=== PATIENT | male | born 1995 | race Caucasian/White ===

== ENCOUNTER 2017-10-25 22:35 | Observation (INO) | payer MEDICAID ==
[2017-10-25 22:43] VITALS: BMI 28.1
[2017-10-25] MEDS ORDERED: Sodium Chloride 0.9% 1,000 ML IV STA (22:47)
--- NOTE | 2017-10-25 22:51 | ED PDOC ---
Arrival/HPI - General Chief Complaint: Abdominal Pain Time Seen by Provider: 10/25/17 22:40 Historian: Patient - History of Present Illness Narrative History of Present Illness (Text): 10/25/17 22:48 22yo male with no pmhx present with complaint of RLQ abdominal pain since this morning. States pain started on his epigastric area and localized on his RLQ. States pain is constant , without exacerbating/relieving factors. Denies nausea , vomiting, diarrhea, constipation, melena, hematemesis, chest pain, chills, sick contact, travel, any other complaint. Past Medical History - Provider Review Nursing Documentation Reviewed: Yes - Infectious Disease Hx of Infectious Diseases: None - Musculoskeletal/Rheumatological Hx Falls: No - Psychiatric Hx Substance Use: No - Surgical History Other/Comment: PT DENIES MEDICAL HX Family/Social History - Physician Review Nursing Documentation Reviewed: Yes Family/Social History: Unknown Family HX Smoking Status: Never Smoked Hx Alcohol Use: No Hx Substance Use: No Allergies/Home Meds Allergies/Adverse Reactions: Allergies No Known Allergies Allergy (Verified 05/01/16 21:49) Home Medications: Home Meds Medication Instructions Recorded Confirmed No Known Home Med 05/01/16 10/25/17 Review of Systems - Physician Review All systems were reviewed & negative as marked: Yes - Review of Systems Constitutional: Normal Eyes: Normal ENT: Normal Respiratory: Normal Cardiovascular: Normal Gastrointestinal: Abdominal Pain. absent: Constipation, Diarrhea, Nausea, Vomiting, Hematochezia, Hematemesis Genitourinary Male: Normal Musculoskeletal: Normal Skin: Normal Neurological: Normal Endocrine: Normal Hemo/Lymphatic: Normal Psychiatric: Normal Physical Exam Vital Signs Reviewed: Yes Vital Signs Temp Pulse Resp BP Pulse Ox 10/25/17 22:43 98.4 F 57 L 18 131/57 L 95 10/25/17 22:42 98.4 F 57 L 18 131/57 L 95 Temperature: Afebrile Blood Pressure: Normal Pulse: Regular Respiratory Rate: Normal Appearance: Positive for: Well-Appearing, Non-Toxic, Comfortable Pain Distress: None Mental Status: Positive for: Alert and Oriented X 3 - Systems Exam Head: Present: Atraumatic, Normocephalic Pupils: Present: PERRL Extroacular Muscles: Present: EOMI Conjunctiva: Present: Normal Mouth: Present: Moist Mucous Membranes Neck: Present: Normal Range of Motion Respiratory/Chest: Present: Clear to Auscultation, Good Air Exchange. No: Respiratory Distress, Accessory Muscle Use Cardiovascular: Present: Regular Rate and Rhythm, Normal S1, S2. No: Murmurs Abdomen: Present: Tenderness (RLQ), Normal Bowel Sounds, Other (Soft). No: Distention, Peritoneal Signs, Rebound, Guarding, McBurney's Point Tender, Rovsing's Sign Present Back: Present: Normal Inspection Upper Extremity: Present: Normal Inspection. No: Cyanosis, Edema Lower Extremity: Present: Normal Inspection. No: Edema Neurological: Present: GCS=15, CN II-XII Intact, Speech Normal Skin: Present: Warm, Dry, Normal Color. No: Rashes Psychiatric: Present: Alert, Oriented x 3, Normal Insight, Normal Concentration Medical Decision Making ED Course and Treatment: 10/25/17 23:55 22yo male present with RLQ pain. Lab was ordered. small leukocytosis was noted. Lab was otherwise nonspecific 1L NS, Toradol ordered. ABDOMEN and PELVIS: Intraperitoneal space: Unremarkable. No free air. No significant fluid collection. Bones/joints: No acute fracture. No dislocation. Soft tissues: Unremarkable. Vasculature: Unremarkable. No abdominal aortic aneurysm. Lymph nodes: Unremarkable. No enlarged lymph nodes. IMPRESSION: The appendix is not visualized. No pericecal inflammatory changes. However early acute appendicitis cannot be evaluated on this examination. Correlate clinically. Base on the CT finding. PT will be admitted for evaluation by the surgical team. vice president planning ankita. Dr. Mukesh luciano. 10/26/17 00:55 Case was VIVIEN Mayorga who states pt should be admitted to the hospitalist. Case was DW Dr. Bailon and pt was admitted to they service. Case was also DW the surgical instrument mechanic Estela and she will see pt. All result and plan was DW the pt and he agreed. - Lab Interpretations Lab Results: 10/25/17 23:00 10/25/17 23:00 Lab Results 10/25/17 23:45: Urine Color Yellow, Urine Appearance Clear, Urine pH 6.5, Ur Specific [place] 1.020, Urine Protein Trace H, Urine Glucose (UA) Negative, Urine Ketones Trace H, Urine Blood Negative, Urine Nitrate Negative, Urine Bilirubin Negative, Urine Urobilinogen 0.2, Ur Leukocyte Esterase Negative, Urine RBC 0 - 2, Urine WBC 0 - 2 10/25/17 23:00: Sodium 141, Potassium 3.8, Chloride 102, Carbon Dioxide 28, Anion Gap 16, BUN 22 H, Creatinine 1.2, Est GFR ( Amer) > 60, Est GFR ( Non-Af Amer) > 60, Random Glucose 88, Calcium 9.5, Magnesium 2.0, Total Bilirubin 0.3, AST 82 H, ALT 71 H, Alkaline Phosphatase 86, Total Protein 7.6, Albumin 4.6, Globulin 3.1, Albumin/Globulin Ratio 1.5, Lipase 57 10/25/17 23:00: PT 12.7 H, INR 1.11, APTT 30.3 10/25/17 23:00: WBC 11.2 H D, RBC 5.69, Hgb 13.8 L, Hct 42.4, MCV 74.5 L, MCH 24.3 L, MCHC 32.5, RDW 14.5, Plt Count 114 L, MPV 10.1, Gran % 59.4, Lymph % ( Auto) 34.9, [place] % (Auto) 4.5, Eos % (Auto) 1.0 L, Baso % (Auto) 0.2, Gran # 6.68 H, Lymph # (Auto) 3.9 H, [place] # (Auto) 0.5, Eos # (Auto) 0.1, Baso # (Auto ) 0.02 - RAD Interpretation Radiology Orders: 10/25/17 22:46 ABD & PELVIS W/O PO OR IV CONT [CT] Stat - Medication Orders Current Medication Orders: Discontinued Medications Sodium Chloride (Sodium Chloride 0.9%) 1,000 mls @ 999 mls/hr IV .Q1H1M STA Stop: 10/25/17 23:47 Last Admin: 10/25/17 23:02 Dose: 999 mls/hr eMAR Start Stop Document 10/25/17 23:02 AD (Rec: 10/25/17 23:02 AD [email or web address]) Intravenous Solution Start Date 10/25/17 Start Time 23:02 Piperacillin Sod/Tazobactam Sod (Zosyn 3.375 In Ns 100ml) 100 mls @ 200 mls/hr IVPB STAT STA PRN Reason: Protocol Stop: 10/26/17 00:46 Last Admin: 08/18/18 00:41 Dose: 200 mls/hr eMAR Start Stop Document 10/26/17 00:41 AD (Rec: 10/26/17 00:41 AD [email or web address]) Intravenous Solution Start Date 10/26/17 Start Time 00:41 Ketorolac Tromethamine (Toradol) 30 mg IVP STAT STA Stop: 10/25/17 22:47 Last Admin: 10/25/17 23:02 Dose: 30 mg MAR Pain Assessment Document 10/25/17 23:02 AD (Rec: 10/25/17 23:02 AD [email or web address] Pain Reassessment Is this a pain reassessment? No Presence of Pain Presence of Pain Yes Pain Scale Used Pain Scale Used Numeric Description Intensity of Pain at present 8 IVP Administration Document 10/25/17 23:02 AD (Rec: 10/25/17 23:02 AD [email or web address]) Charges for Administration # of IVP Administrations 1 Disposition/Present on Arrival - Present on Arrival Any Indicators Present on Arrival: No History of DVT/PE: No History of Uncontrolled Diabetes: No Urinary Catheter: No History of Decub. Ulcer: No History Surgical Site Infection Following: None - Disposition Have Diagnosis and Disposition been Completed?: Yes Diagnosis: Acute appendicitis Disposition: HOSPITALIZED Disposition Time: 00:15 Patient Plan: Admission Patient Problems: Current Active Problems Problem Status Onset Acute appendicitis Acute Condition: STABLE
[2017-10-25 23:30] LABS: BASO # 0.02 K/mm3 (0.0-2.0); BASO % 0.2 % (0.0-3.0); EOS # 0.1 (0.0-0.7); GRAN # 6.68 (1.4-6.5); GRAN % 59.4 % (50.0-68.0); HEMOGLOBIN 13.8 g/dL (14.0-18.0); LYMPH # 3.9 (1.2-3.4); LYMPH % 34.9 % (22.0-35.0); MEAN CELL VOLUME 74.5 fl (80.0-105.0); MEAN CORPUSCULAR HEMOGLOBIN 24.3 pg (25.0-35.0); MEAN CORPUSCULAR HGB CONC 32.5 g/dl (31.0-37.0); MEAN PLATELET VOLUME 10.1 fl (7.0-11.0); MONO # 0.5 (0.1-0.6); MONO % 4.5 % (1.0-6.0); RBC 5.69 10^6/uL (3.5-6.1); RED CELL DISTRIBUTION WIDTH 14.5 % (11.5-14.5); WHITE BLOOD COUNT 11.2 10^3/ul (4.5-11.0)
[2017-10-25 23:36] LABS: INR 1.11; PARTIAL THROMBOPLASTIN TIME 30.3 Seconds (25.1-36.5); PROTHROMBIN TIME 12.7 SECONDS (9.4-12.5)
[2017-10-25 23:58] LABS: ALB/GLOB RATIO 1.5 (1.1-1.8); ALBUMIN 4.6 g/dL (3.0-4.8); ALT/SGPT 71 U/L (7-56); AST/SGOT 82 U/L (17-59); BLOOD UREA NITROGEN 22 mg/dL (7-21); CALCIUM 9.5 mg/dL (8.4-10.5); GFR AFRICAN-AMERICAN > 60; GFR NON-AFRICAN AMERICAN > 60; LIPASE 57 U/L (23-300)
[2017-10-26 00:12] LABS: PH,URINE 6.5 (4.7-8.0); URINE BILIRUBIN NEGATIVE (NEGATIVE); URINE BLOOD NEGATIVE (NEGATIVE); URINE GLUCOSE (UA) NEGATIVE (NEGATIVE); URINE LEUKOCYTE ESTERASE NEGATIVE Leu/uL (NEGATIVE); URINE PROTEIN TRACE mg/dL (<30 mg/dL); URINE UROBILINOGEN 0.2 E.U./dL (<1 E.U./dL)
[2017-10-26] MEDS ORDERED: Piperacillin/Tazobact 3.375 gm 100 ML IVPB STA (00:17)
[2017-10-26 00:22] LABS: URINE APPEARANCE CLEAR (CLEAR); URINE COLOR YELLOW (YELLOW)
[2017-10-26 00:42] LABS: URINE RBC 0 - 2 /hpf (0-2); URINE WBC 0 - 2 /hpf (0-6)
[2017-10-26 02:13] VITALS: RESP 20
--- NOTE | 2017-10-26 04:43 | CP.PCM.HP ---
<Edelmira Rodriguez - Last Filed: 10/26/17 05:51> History of Present Illness - History of Present Illness History of Present Illness: Edelmira Rodriguez, PGY-1, Internal Medicine History and Physical for Dr. Webb CC: Abdominal Pain HPI: 22 year old male with no past medical history presents with pressure-like right lower quadrant abdominal pain that has been present for 1 day. Patient reports he has never had this kind of pain before. He reports prior to the pain , patient had fish and well-cooked eggs. Patient's pain started in the epigastric region and radiated to the right lower quadrant. Now, patient complains of worse pain in right lower quadrant. Patient denies any other symptoms, such as fever, nausea, vomiting, constipation, diarrhea, bloody stools , dizziness, headache. Patient denies chest pain, heart palpitations, shortness of breath, dysuria, and hematuria. PMH: denies PSH: denies Allergies: denies FMHx: denies SHX: denies smoking, drinking, or recreational drug use PMD: Dr. Mayorga [place] [facility] [place] Insurance: [employer] Medicaid Present on Admission - Present on Admission Any Indicators Present on Admission: No History of DVT/PE: No History of Uncontrolled Diabetes: No Review of Systems - Constitutional Constitutional: absent: Anorexia, Chills, Fever, Malaise, Weight Loss - EENT Eyes: absent: Change in Vision Nose/Mouth/Throat: absent: Epistaxis, Bleeding Gums, Sore Throat - Cardiovascular Cardiovascular: absent: Chest Pain, Dyspnea on Exertion, Edema - Respiratory Respiratory: absent: Cough, Dyspnea, Dyspnea on Exertion - Gastrointestinal Gastrointestinal: Abdominal Pain (epigastric radiating to RLQ). absent: Belching, Constipation, Diarrhea, Nausea, Vomiting - Musculoskeletal Musculoskeletal: absent: Abnormal Gait, Back Pain - Integumentary Integumentary: absent: Dry Skin - Neurological Neurological: absent: Abnormal Gait, Dizziness, Headaches, Tingling - Psychiatric Psychiatric: absent: Anxiety, Depression Past Patient History - Infectious Disease Hx of Infectious Diseases: None - Past Social History Smoking Status: Never Smoked - CARDIAC Hx Cardiac Disorders: No Hx Angina: No Hx Cardia Arrhythmia: No Hx Circulatory Problems: No Hx Congestive Heart Failure: No Hx Heart Murmur: No Hx Heart Transplant: No Hx Hypercholesterolemia: No Hx Hypertension: No Hx Internal Defibrillator: No Hx Mitral Valve Prolapse: No Hx Pacemaker: No Hx Peripheral Edema: No Hx Peripheral Vascular Disease: No - PULMONARY Hx Respiratory Disorders: No Hx Asthma: No Hx Bronchitis: No Hx Chronic Obstructive Pulmonary Disease (COPD): No Hx Emphysema: No Hx Pneumonia: No Hx Respiratory Aspiration: No Hx Respiratory Tract Infection: No Hx Sleep Apnea: No Hx Tuberculosis: No - MUSCULOSKELETAL/RHEUMATOLOGICAL Hx Falls: No - PSYCHIATRIC Hx Substance Use: No - SURGICAL HISTORY Hx Cardiac Catheterization: No Hx Coronary Stent: No Meds Allergies/Adverse Reactions: Allergies Allergy/AdvReac Type Severity Reaction Status Date / Time No Known Allergies Allergy Verified 05/01/16 21:49 Physical Exam - Constitutional Appears: Well, Non-toxic, No Acute Distress - Head Exam Head Exam: ATRAUMATIC, NORMOCEPHALIC - Eye Exam Eye Exam: EOMI, PERRL - ENT Exam ENT Exam: Mucous Membranes Moist - Respiratory Exam Respiratory Exam: Clear to Auscultation Bilateral, NORMAL BREATHING PATTERN - Cardiovascular Exam Cardiovascular Exam: REGULAR RHYTHM, RRR - GI/Abdominal Exam GI & Abdominal Exam: Mass (RLQ palpated), Normal Bowel Sounds, Soft, Tenderness - Extremities Exam Extremities exam: Positive for: full ROM - Neurological Exam Neurological exam: Alert, CN II-XII Intact, Oriented x3 - Psychiatric Exam Psychiatric exam: Normal Affect, Normal Mood - Skin Skin Exam: Dry, Intact, Normal Color Results - Vital Signs Recent Vital Signs: Last Vital Signs Temp 97.7 F 10/26/17 01:56 Pulse 51 L 10/26/17 01:56 Resp 20 10/26/17 01:56 BP 99/55 L 10/26/17 01:56 Pulse Ox 97 10/26/17 01:05 - Labs Result Diagrams: 10/25/17 23:00 10/25/17 23:00 Assessment & Plan - Assessment and Plan (Free Text) Assessment: 22 year old male with no past medical history presents with pressure-like right lower quadrant abdominal pain that has been present for 1 day. Patient reports he has never had this kind of pain before. Patient was admitted for abdominal pain 2/2 to possible appendicitis. Plan: Abdominal Pain 2/2 to appendicitis. Doubt gastroenteritis -Patient has history eating well cooked eggs and fish. Patient denies history of diarrhea. -Abdominal CT: The appendix is not visualized. No pericecal inflammatory changes. However early acute appendicitis cannot be evaluated on this examination. -WBC on admission: 11.2 -Patient is afebrile. -NPO for possible surgery. -Patient received one dose of zosyn in the ED. -Surgery, Dr. Colbert, has been consulted for recommendations. Leukocytosis 2/2 to appendicitis. Doubt infection -WBC: 11.2 -Abdominal CT: no evidence of intraabdominal infection. The appendix is not visualized. No pericecal inflammatory changes. However early acute appendicitis cannot be evaluated on this examination. -UA: trace proteins, trace ketones, negative leukocyte esterase and nitrites -Follow up chest X ray, blood cultures, urine cultures. Microcytic Anemia -Hgb: 13.8. Anemia is mild. -Continue to monitor. Elevated PT -PT: 12.7. -Continue to monitor. Transaminitis -Mild elevation of AST/ALT. Normal ALP. -Follow up blood alcohol level, lipid panel to rule out nonalcoholic fatty liver disease and alcoholic liver disease. -Continue to monitor. GI prophylaxis: protonix 40 mg daily DVT prophylaxis: SCD Patient seen and assessed with Dr. Webb. - Date & Time Date: 10/26/17 Time: 04:46 <Nette Webb - Last Filed: 10/27/17 06:23> Results - Vital Signs Recent Vital Signs: Last Vital Signs Temp 98 F 10/26/17 21:31 Pulse 68 10/26/17 21:31 Resp 20 10/26/17 21:31 BP 117/53 L 10/26/17 21:31 Pulse Ox 96 10/26/17 21:31 - Labs Result Diagrams: 10/26/17 06:15 10/26/17 06:15 Labs: Laboratory Results - last 24 hr 10/26/17 10/26/17 10/26/17 06:15 06:15 06:45 WBC 9.6 RBC 5.49 Hgb 13.0 L Hct 40.7 L MCV 74.1 L MCH 23.7 L MCHC 31.9 RDW 14.3 Plt Count 103 L MPV 9.8 Gran % 55.6 Lymph % (Auto) 38.0 H [place] % (Auto) 5.2 Eos % (Auto) 1.0 L Baso % (Auto) 0.2 Gran # 5.31 Lymph # (Auto) 3.6 H [place] # (Auto) 0.5 Eos # (Auto) 0.1 Baso # (Auto) 0.02 PT 13.4 H INR 1.16 APTT 28.3 Sodium 141 Potassium 4.1 Chloride 105 Carbon Dioxide 27 Anion Gap 13 BUN 20 Creatinine 1.0 Est GFR ( Amer) > 60 Est GFR (Non-Af Amer) > 60 Random Glucose 93 Calcium 9.1 Phosphorus 4.1 Magnesium 2.1 Total Bilirubin 0.4 AST 52 ALT 57 H Alkaline Phosphatase 78 Total Protein 6.9 Albumin 3.9 Globulin 3.0 Albumin/Globulin Ratio 1.3 Triglycerides 57 Cholesterol 145 LDL Cholesterol Direct 85 HDL Cholesterol 31 Alcohol, Quantitative 10/26/17 06:45 WBC RBC Hgb Hct MCV MCH MCHC RDW Plt Count MPV Gran % Lymph % (Auto) [place] % (Auto) Eos % (Auto) Baso % (Auto) Gran # Lymph # (Auto) [place] # (Auto) Eos # (Auto) Baso # (Auto) PT INR APTT Sodium Potassium Chloride Carbon Dioxide Anion Gap BUN Creatinine Est GFR ( Amer) Est GFR (Non-Af Amer) Random Glucose Calcium Phosphorus Magnesium Total Bilirubin AST ALT Alkaline Phosphatase Total Protein Albumin Globulin Albumin/Globulin Ratio Triglycerides Cholesterol LDL Cholesterol Direct HDL Cholesterol Alcohol, Quantitative < 10 Addendum Addendum: 10/27/17 06:19 pt c/o abdominal pain rt lower quadrant associated with nausea but no diarrhea constipation , no fever chills. pt has been eating well and has good apatite.
[2017-10-26] MEDS ORDERED: Sodium Chloride 0.9% 1,000 ML IV STA (04:47)
[2017-10-26] MEDS: Pantoprazole 40 mg EC Tab PO SCH (05:30)
[2017-10-26 06:53] LABS: BASO # 0.02 K/mm3 (0.0-2.0); BASO % 0.2 % (0.0-3.0); EOS # 0.1 (0.0-0.7); GRAN # 5.31 (1.4-6.5); GRAN % 55.6 % (50.0-68.0); LYMPH # 3.6 (1.2-3.4); MEAN CELL VOLUME 74.1 fl (80.0-105.0); MEAN CORPUSCULAR HEMOGLOBIN 23.7 pg (25.0-35.0); MEAN CORPUSCULAR HGB CONC 31.9 g/dl (31.0-37.0); MEAN PLATELET VOLUME 9.8 fl (7.0-11.0); MONO # 0.5 (0.1-0.6); MONO % 5.2 % (1.0-6.0); RBC 5.49 10^6/uL (3.5-6.1); RED CELL DISTRIBUTION WIDTH 14.3 % (11.5-14.5); WHITE BLOOD COUNT 9.6 10^3/ul (4.5-11.0)
[2017-10-26 07:09] LABS: ALB/GLOB RATIO 1.3 (1.1-1.8); ALBUMIN 3.9 g/dL (3.0-4.8); ALT/SGPT 57 U/L (7-56); AST/SGOT 52 U/L (17-59); BLOOD UREA NITROGEN 20 mg/dL (7-21); CALCIUM 9.1 mg/dL (8.4-10.5); GFR AFRICAN-AMERICAN > 60; GFR NON-AFRICAN AMERICAN > 60; HDL CHOLESTEROL 31 mg/dL (29-60)
[2017-10-26 07:16] LABS: INR 1.16; PARTIAL THROMBOPLASTIN TIME 28.3 Seconds (25.1-36.5); PROTHROMBIN TIME 13.4 SECONDS (9.4-12.5)
[2017-10-26 07:17] LABS: LDL CHOLESTEROL 85 mg/dL (0-129)
--- NOTE | 2017-10-26 07:34 | CP.PCM.CON ---
History of Present Illness - History of Present Illness History of Present Illness: Surgery Consult: Dr. Colbert Pt is a 22M with no PMH or PSH who presented to [facility] with abdominal pain that started yesterday morning. Pt states his pain started in the epigastric region and localized to the RLQ. He describes the pain as dull with no alleviating or exacerbating factors. He denies any associated N/V or fevers/ chills. Pt states he had a similar episode back in when he was told he may have appendicitis. However, he was found to be constipated and his symptoms resolved after getting a suppository. In the ER, pt had a CT abdomen/pelvis which showed non-visualized appendix with no surrounding inflammation, however early appendicitis can't be ruled out. Surgery called to evaluate. Currently, pt is resting comfortably. States pain is still present in the RLQ. His last BM was yesterday and states it was normal. Denies any other complaints at this time. PMHx: denies PSHx: denies SocialHx: denies smoking/EtOH/drugs NKDA Review of Systems - Review of Systems All systems: reviewed and no additional remarkable complaints except (as per HPI ) Past Patient History - Infectious Disease Hx of Infectious Diseases: None - Past Social History Smoking Status: Never Smoked - CARDIAC Hx Cardiac Disorders: No Hx Angina: No Hx Cardia Arrhythmia: No Hx Circulatory Problems: No Hx Congestive Heart Failure: No Hx Heart Murmur: No Hx Heart Transplant: No Hx Hypercholesterolemia: No Hx Hypertension: No Hx Internal Defibrillator: No Hx Mitral Valve Prolapse: No Hx Pacemaker: No Hx Peripheral Edema: No Hx Peripheral Vascular Disease: No - PULMONARY Hx Respiratory Disorders: No Hx Asthma: No Hx Bronchitis: No Hx Chronic Obstructive Pulmonary Disease (COPD): No Hx Emphysema: No Hx Pneumonia: No Hx Respiratory Aspiration: No Hx Respiratory Tract Infection: No Hx Sleep Apnea: No Hx Tuberculosis: No - MUSCULOSKELETAL/RHEUMATOLOGICAL Hx Falls: No - PSYCHIATRIC Hx Substance Use: No - SURGICAL HISTORY Hx Cardiac Catheterization: No Hx Coronary Stent: No - ANESTHESIA Hx Anesthesia: No Hx Anesthesia Reactions: No Meds Allergies/Adverse Reactions: Allergies Allergy/AdvReac Type Severity Reaction Status Date / Time No Known Allergies Allergy Verified 05/01/16 21:49 - Medications Medications: Current Medications Sodium Chloride (Sodium Chloride 0.9%) 1,000 mls @ 125 mls/hr IV .Q8H STA Stop: 10/26/17 12:46 Last Admin: 10/26/17 05:30 Dose: 125 mls/hr Pantoprazole Sodium (Protonix Ec Tab) 40 mg PO 0600 CATARINO Last Admin: 10/26/17 05:30 Dose: 40 mg Physical Exam - Constitutional Appears: Well, No Acute Distress - Head Exam Head Exam: ATRAUMATIC, NORMOCEPHALIC - Eye Exam Eye Exam: Normal appearance - ENT Exam ENT Exam: Mucous Membranes Moist - Respiratory Exam Respiratory Exam: NORMAL BREATHING PATTERN - Cardiovascular Exam Cardiovascular Exam: RRR - GI/Abdominal Exam GI & Abdominal Exam: Soft, Tenderness (in the RLQ/suprapubic region upon deep palpation). absent: Distended, Guarding, Rebound - Neurological Exam Neurological exam: Alert, Oriented x3 - Skin Skin Exam: Dry, Warm Results - Vital Signs Recent Vital Signs: Last Vital Signs Temp 97.7 F 10/26/17 01:56 Pulse 51 L 10/26/17 01:56 Resp 20 10/26/17 01:56 BP 99/55 L 10/26/17 01:56 Pulse Ox 97 10/26/17 01:05 - Labs Result Diagrams: 10/26/17 06:15 10/26/17 06:15 Labs: Laboratory Results - last 24 hr 10/26/17 10/26/17 10/26/17 06:15 06:15 06:45 WBC 9.6 RBC 5.49 Hgb 13.0 L Hct 40.7 L MCV 74.1 L MCH 23.7 L MCHC 31.9 RDW 14.3 Plt Count 103 L MPV 9.8 Gran % 55.6 Lymph % (Auto) 38.0 H [place] % (Auto) 5.2 Eos % (Auto) 1.0 L Baso % (Auto) 0.2 Gran # 5.31 Lymph # (Auto) 3.6 H [place] # (Auto) 0.5 Eos # (Auto) 0.1 Baso # (Auto) 0.02 PT 13.4 H INR 1.16 APTT 28.3 Sodium 141 Potassium 4.1 Chloride 105 Carbon Dioxide 27 Anion Gap 13 BUN 20 Creatinine 1.0 Est GFR ( Amer) > 60 Est GFR (Non-Af Amer) > 60 Random Glucose 93 Calcium 9.1 Phosphorus 4.1 Magnesium 2.1 Total Bilirubin 0.4 AST 52 ALT 57 H Alkaline Phosphatase 78 Total Protein 6.9 Albumin 3.9 Globulin 3.0 Albumin/Globulin Ratio 1.3 Triglycerides 57 Cholesterol 145 LDL Cholesterol Direct 85 HDL Cholesterol 31 Alcohol, Quantitative 10/26/17 06:45 WBC RBC Hgb Hct MCV MCH MCHC RDW Plt Count MPV Gran % Lymph % (Auto) [place] % (Auto) Eos % (Auto) Baso % (Auto) Gran # Lymph # (Auto) [place] # (Auto) Eos # (Auto) Baso # (Auto) PT INR APTT Sodium Potassium Chloride Carbon Dioxide Anion Gap BUN Creatinine Est GFR ( Amer) Est GFR (Non-Af Amer) Random Glucose Calcium Phosphorus Magnesium Total Bilirubin AST ALT Alkaline Phosphatase Total Protein Albumin Globulin Albumin/Globulin Ratio Triglycerides Cholesterol LDL Cholesterol Direct HDL Cholesterol Alcohol, Quantitative < 10 - Imaging and Cardiology CT scan - abdomen Status: Image reviewed by me, Report reviewed by me Assessment & Plan - Assessment and Plan (Free Text) Assessment: 22M with abdominal pain r/o appendicitis Plan: - keep pt NPO - IVF - will hold off on IV ABX for now as it may mask symptoms - unclear if pt's symptoms are truly due to appendicitis, will monitor and reassess need for OR - d/w Dr. Manda Ngo
--- NOTE | 2017-10-26 08:34 | RAD ---
Date of service: 10/26/2017 HISTORY: r/o infiltrate COMPARISON: No prior. FINDINGS: LUNGS: No active pulmonary disease. PLEURA: No significant pleural effusion identified, no pneumothorax apparent. CARDIOVASCULAR: Are the mid likely position. . OSSEOUS STRUCTURES: No significant abnormalities. VISUALIZED UPPER ABDOMEN: Normal. OTHER FINDINGS: None. IMPRESSION: No active disease.
[2017-10-26] MEDS ORDERED: Magnesium Hydroxide Susp 30 ml UD PO ONE ×2 (12:58→17:33)
--- NOTE | 2017-10-26 13:17 | CT ---
Date of service: 10/25/2017 PROCEDURE: CT abdomen pelvis HISTORY: RLQ pain COMPARISON: Comparison made with prior CT scan abdomen pelvis 05/01/2016. TECHNIQUE: Contiguous axial images of the abdomen and pelvis performed without oral or intravenous contrast. Additional 2D sagittal and coronal reformats generated. Radiation dose: Total exam DLP = 493.22 mGy-cm. This CT exam was performed using one or more of the following dose reduction techniques: Automated exposure control, adjustment of the mA and/or kV according to patient size, and/or use of iterative reconstruction technique. . FINDINGS: LOWER THORAX: Minimal passive/dependent type atelectasis both posterior lower lung whyte right greater than left. LIVER: Unremarkable. No gross lesion or ductal dilatation. GALLBLADDER AND BILE DUCTS: Unremarkable. PANCREAS: Unremarkable. No mass. No ductal dilatation. SPLEEN: Unremarkable. No splenomegaly. ADRENALS: Unremarkable. KIDNEYS AND URETERS: Unremarkable. No stone or hydronephrosis. BLADDER: Grossly unremarkable. REPRODUCTIVE: Unremarkable. APPENDIX: The appendix is not seen with certainty on this exam however no obvious inflammatory changes seen in the right lower quadrant of the abdomen. Note however that despite the fact that the appendix is not seen with no obvious inflammatory changes in the right lower quadrant, the possibility of an early acute appendicitis cannot be excluded on this exam and therefore clinical correlation is recommended. BOWEL: Unremarkable. No obstruction. No gross mural thickening. PERITONEUM: Unremarkable. No fluid collection. No free air. LYMPH NODES: Unremarkable. No enlarged lymph nodes. VASCULATURE: Unremarkable. No aortic aneurysm. BONES: No fracture or destructive lesion. OTHER FINDINGS: None. IMPRESSION: The appendix is not seen with certainty on this exam however no obvious inflammatory changes seen in the right lower quadrant of the abdomen. Note however that despite the fact that the appendix is not seen with no obvious inflammatory changes in the right lower quadrant, the possibility of an early acute appendicitis cannot be excluded on this exam and therefore clinical correlation is recommended.
[2017-10-26 21:32] VITALS: BP 117/53; PULSE 68; TEMP 98; O2SAT 96
--- NOTE | 2017-10-27 07:15 | CP.PCM.PN ---
Subjective - Date & Time of Evaluation Date of Evaluation: 10/27/17 Time of Evaluation: 06:55 - Subjective Subjective: General Surgery Note for Dr. Colbert Patient seen and examined at bedside. Overnight, patient tried to elope but return. Patient eager to go home. He denies any resting abdominal pain but states if you press RLQ it hurts. He had 2 BMs after Milk of mag. Denies fever/ chills, nausea/vomiting, or diarrhea. Objective - Vital Signs/Intake and Output Vital Signs (last 24 hours): Temp Pulse Resp BP Pulse Ox 98 F 68 20 117/53 L 96 10/26/17 21:31 10/26/17 21:31 10/26/17 21:31 10/26/17 21:31 10/26/17 21:31 - Medications Medications: Current Medications Pantoprazole Sodium (Protonix Ec Tab) 40 mg PO 0600 CATARINO Last Admin: 10/26/17 05:30 Dose: 40 mg - Labs Labs: 10/26/17 06:15 10/26/17 06:15 PT 13.4 SECONDS (9.4-12.5) H 10/26/17 06:45 INR 1.16 10/26/17 06:45 APTT 28.3 Seconds (25.1-36.5) 10/26/17 06:45 - Constitutional Appears: No Acute Distress - Head Exam Head Exam: ATRAUMATIC, NORMOCEPHALIC - Eye Exam Eye Exam: Normal appearance - ENT Exam ENT Exam: Mucous Membranes Moist - Respiratory Exam Respiratory Exam: NORMAL BREATHING PATTERN - Cardiovascular Exam Cardiovascular Exam: REGULAR RHYTHM - GI/Abdominal Exam GI & Abdominal Exam: Soft, Tenderness (mild with deep palpation of RLQ), Normal Bowel Sounds. absent: Distended, Firm, Guarding, Rigid, Hernia, Mass, Rebound - Extremities Exam Extremities Exam: Normal Capillary Refill - Neurological Exam Neurological Exam: Alert, Awake, Oriented x3 - Psychiatric Exam Psychiatric exam: Normal Affect, Normal Mood - Skin Skin Exam: Dry, Intact, Warm Assessment and Plan - Assessment and Plan (Free Text) Assessment: 22 M who presents with abdominal pain Plan: -Regular diet -Patient should follow up with GI as outpatient -No surgical intervention needed at this time -Further recommendations as per Dr. Sayra Mercer PGY2
[2017-10-27] MEDS: Pantoprazole 40 mg EC Tab PO SCH (07:35)
[2017-10-27 07:37] LABS: BASO # 0.02 K/mm3 (0.0-2.0); BASO % 0.3 % (0.0-3.0); EOS # 0.1 (0.0-0.7); EOS % 1.5 % (1.5-5.0); GRAN # 3.94 (1.4-6.5); HEMOGLOBIN 14.1 g/dL (14.0-18.0); LYMPH # 3.4 (1.2-3.4); LYMPH % 42.5 % (22.0-35.0); MEAN CELL VOLUME 74.4 fl (80.0-105.0); MEAN CORPUSCULAR HGB CONC 32.3 g/dl (31.0-37.0); MEAN PLATELET VOLUME 9.5 fl (7.0-11.0); MONO # 0.5 (0.1-0.6); MONO % 5.7 % (1.0-6.0); RBC 5.87 10^6/uL (3.5-6.1); RED CELL DISTRIBUTION WIDTH 14.4 % (11.5-14.5); WHITE BLOOD COUNT 7.9 10^3/ul (4.5-11.0)
[2017-10-27 07:53] LABS: ALB/GLOB RATIO 1.4 (1.1-1.8); ALBUMIN 4.3 g/dL (3.0-4.8); ALT/SGPT 63 U/L (7-56); AST/SGOT 51 U/L (17-59); BLOOD UREA NITROGEN 12 mg/dL (7-21); CALCIUM 9.6 mg/dL (8.4-10.5); GFR AFRICAN-AMERICAN > 60; GFR NON-AFRICAN AMERICAN > 60
--- NOTE | 2017-10-27 11:01 | CP.PCM.DIS ---
Provider - Provider Date of Admission: 10/26/17 00:18 Attending physician: Vita Alfaro MD Primary care physician: Lang Mayorga MD Time Spent in preparation of Discharge (in minutes): 45 Diagnosis - Discharge Diagnosis (1) Abdominal pain Status: Resolved Priority: Medium (2) Constipation Status: Chronic Priority: Medium Hospital Course - Lab Results Lab Results: Micro Results 10/26/17 15:32 Urine,Clean Catch Urine Culture - Final No Growth (<1,000 CFU/ML) 10/26/17 00:30 Blood-Venous Blood Culture - Preliminary NO GROWTH AFTER 24 HOURS Most Recent Lab Values WBC 7.9 10^3/ul (4.5-11.0) 10/27/17 06:30 RBC 5.87 10^6/uL (3.5-6.1) 10/27/17 06:30 Hgb 14.1 g/dL (14.0-18.0) 10/27/17 06:30 Hct 43.7 % (42.0-52.0) 10/27/17 06:30 MCV 74.4 fl (80.0-105.0) L 10/27/17 06:30 MCH 24.0 pg (25.0-35.0) L 10/27/17 06:30 MCHC 32.3 g/dl (31.0-37.0) 10/27/17 06:30 RDW 14.4 % (11.5-14.5) 10/27/17 06:30 Plt Count 120 10^3/uL (120.0-450.0) 10/27/17 06:30 MPV 9.5 fl (7.0-11.0) 10/27/17 06:30 Gran % 50.0 % (50.0-68.0) 10/27/17 06:30 Lymph % (Auto) 42.5 % (22.0-35.0) H 10/27/17 06:30 [place] % (Auto) 5.7 % (1.0-6.0) 10/27/17 06:30 Eos % (Auto) 1.5 % (1.5-5.0) 10/27/17 06:30 Baso % (Auto) 0.3 % (0.0-3.0) 10/27/17 06:30 Gran # 3.94 (1.4-6.5) 10/27/17 06:30 Lymph # (Auto) 3.4 (1.2-3.4) 10/27/17 06:30 [place] # (Auto) 0.5 (0.1-0.6) 10/27/17 06:30 Eos # (Auto) 0.1 (0.0-0.7) 10/27/17 06:30 Baso # (Auto) 0.02 K/mm3 (0.0-2.0) 10/27/17 06:30 PT 13.4 SECONDS (9.4-12.5) H 10/26/17 06:45 INR 1.16 10/26/17 06:45 APTT 28.3 Seconds (25.1-36.5) 10/26/17 06:45 Sodium 143 mmol/L (132-148) 10/27/17 06:30 Potassium 4.6 mmol/L (3.6-5.0) 10/27/17 06:30 Chloride 103 mmol/L (98-107) 10/27/17 06:30 Carbon Dioxide 30 mmol/L (21-33) 10/27/17 06:30 Anion Gap 14 (10-20) 10/27/17 06:30 BUN 12 mg/dL (7-21) 10/27/17 06:30 Creatinine 1.0 mg/dl (0.8-1.5) 10/27/17 06:30 Est GFR ( Amer) > 60 10/27/17 06:30 Est GFR (Non-Af Amer) > 60 10/27/17 06:30 Random Glucose 88 mg/dL (70-110) 10/27/17 06:30 Calcium 9.6 mg/dL (8.4-10.5) 10/27/17 06:30 Phosphorus 3.6 mg/dL (2.5-4.5) 10/27/17 06:30 Magnesium 2.1 mg/dL (1.7-2.2) 10/27/17 06:30 Total Bilirubin 0.4 mg/dL (0.2-1.3) 10/27/17 06:30 AST 51 U/L (17-59) 10/27/17 06:30 ALT 63 U/L (7-56) H 10/27/17 06:30 Alkaline Phosphatase 82 U/L (38-126) 10/27/17 06:30 Total Protein 7.5 g/dL (5.8-8.3) 10/27/17 06:30 Albumin 4.3 g/dL (3.0-4.8) 10/27/17 06:30 Globulin 3.1 gm/dL 10/27/17 06:30 Albumin/Globulin Ratio 1.4 (1.1-1.8) 10/27/17 06:30 Triglycerides 57 mg/dL (35-160) 10/26/17 06:15 Cholesterol 145 mg/dL (130-200) 10/26/17 06:15 LDL Cholesterol Direct 85 mg/dL (0-129) 10/26/17 06:15 HDL Cholesterol 31 mg/dL (29-60) 10/26/17 06:15 Lipase 57 U/L (23-300) 10/25/17 23:00 Urine Color Yellow (YELLOW) 10/25/17 23:45 Urine Appearance Clear (CLEAR) 10/25/17 23:45 Urine pH 6.5 (4.7-8.0) 10/25/17 23:45 Ur Specific [place] 1.020 (1.005-1.035) 10/25/17 23:45 Urine Protein Trace mg/dL (<30 mg/dL) H 10/25/17 23:45 Urine Glucose (UA) Negative mg/dL (NEGATIVE) 10/25/17 23:45 Urine Ketones Trace mg/dL (NEGATIVE) H 10/25/17 23:45 Urine Blood Negative (NEGATIVE) 10/25/17 23:45 Urine Nitrate Negative (NEGATIVE) 10/25/17 23:45 Urine Bilirubin Negative (NEGATIVE) 10/25/17 23:45 Urine Urobilinogen 0.2 E.U./dL (<1 E.U./dL) 10/25/17 23:45 Ur Leukocyte Esterase Negative [place]/uL (NEGATIVE) 10/25/17 23:45 Urine RBC 0 - 2 /hpf (0-2) 10/25/17 23:45 Urine WBC 0 - 2 /hpf (0-6) 10/25/17 23:45 Alcohol, Quantitative < 10 mg/dL (0-10) 10/26/17 06:45 - Hospital Course Hospital Course: Mr. Dias is a 22 year old male with no past medical history admitted for pressure-like right lower quadrant abdominal pain and to rule out acute appendicitis. Patient was treated with zosyn, protonix, dulcolax, and magnesium hydroxide. During the course of his hospital stay, patient got a chest xray showed no active disease. CT abdomen/pelvis which showed non-visualized appendix with no surrounding inflammation, however early appendicitis can't be ruled out. Surgery was consulted (Dr. Colbert) and recommended to follow up with GI as outpatient and no surgical intervention needed at this time. Patient instructed to take [id number] miralax as needed for his constipation. Patient was also instructed to follow up with his primary doctor within 3-5 days of discharge, Dr. Mayorga. Patient was instructed to resume activity as tolerated and further informed to return to the ED for worsening or newly concerning symptoms.Patient is now medically stable for discharge. Discharge Exam - Head Exam Head Exam: ATRAUMATIC, NORMOCEPHALIC - Eye Exam Eye Exam: Normal appearance, PERRL - ENT Exam ENT Exam: Mucous Membranes Moist - Respiratory Exam Respiratory Exam: Clear to PA & Lateral. absent: Rales, Rhonchi, Wheezes, Respiratory Distress - Cardiovascular Exam Cardiovascular Exam: REGULAR RHYTHM, +S1, +S2. absent: Gallop, Rubs, Systolic Murmur - GI/Abdominal Exam GI & Abdominal Exam: Normal Bowel Sounds, Soft, Tenderness. absent: Distended, Guarding Additional comments: RLQ tender to palpation - Extremities Exam Extremities exam: normal inspection - Back Exam Back exam: NORMAL INSPECTION - Neurological Exam Neurological exam: Alert, Oriented x3 - Psychiatric Exam Psychiatric exam: Normal Affect, Normal Mood - Skin Skin Exam: Dry, Intact, Normal Color, Warm Discharge Plan - Follow Up Plan Condition: STABLE Disposition: HOME/ ROUTINE Instructions: Appendicitis in Adults Additional Instructions: 1. Please follow up with your primary care doctor (Dr. Mayorga) within one week of discharge 3. Please take [id number] miralax as needed for your constipation 3. Return to the nearest emergency room if you experience worsening or newly concerning symptoms Referrals: Lang Mayorga MD [Primary Care Provider] -
== END 2017-10-27 10:44 | disposition home or self-care (01) ==
LOC: ED 22:35 → ERH 10-26 00:18 → 5RSO 10-26 01:29
PROVIDERS: ADMIT Internal Medicine; ATTEND Internal Medicine
DX: R10.31 Right lower quadrant pain (principal); K59.00 Constipation, unspecified; D50.9 Iron deficiency anemia, unspecified
CPT/HCPCS: 36415; 71045; 74176; 80053; 80061; 80320; 81001; 81003; 83690; 83735; 84100; 85025; 85610; 85730; 87040; 87086; 96374; 99285; G0378; J1885; J2543; J7030